=== PATIENT | female | born 1940 | race Caucasian/White ===

== ENCOUNTER 2020-01-12 18:34 | Emergency (ER) | payer OTHER ==
[~2020-01-12] VITALS: Ht 162.6 cm; Wt 88.5 kg
[~2020-01-12 18:34] MED LIST: ASPI81CH43; LEV100T PO; [UNRECOGNIZED DRUG - OTHER]
[2020-01-12 20:25] LABS: Urine Bacteria FEW /hpf (None Seen); Urine Blood 2+ /uL (Negative); Urine Specific Gravity 1.007 (1.001-1.035); Urine WBC 54 /hpf (0 - 5)
[2020-01-12 23:14] VITALS: BP 155/92
[2020-01-12] MEDS ORDERED: cefTRIAXone SOD 1,000 MG VL IM ONE (23:30)
== END 2020-01-13 00:41 | disposition home or self-care (01) ==
LOC: ER 18:34
DX: N39.0 Urinary tract infection, site not specified (principal); R20.0 Anesthesia of skin; K42.9 Umbilical hernia without obstruction or gangrene; K44.9 Diaphragmatic hernia without obstruction or gangrene; K40.90 Unilateral inguinal hernia, without obstruction or gangrene, not specified as recurrent; R30.0 Dysuria; I12.9 Hypertensive chronic kidney disease with stage 1 through stage 4 chronic kidney disease, or unspecified chronic kidney disease; N18.9 Chronic kidney disease, unspecified; Z88.0 Allergy status to penicillin; Z88.1 Allergy status to other antibiotic agents; Z90.710 Acquired absence of both cervix and uterus
CPT/HCPCS: 74176; 81001; 96372; 99284; J0696